=== PATIENT | male | born 1965 | race Caucasian/White ===

== ENCOUNTER → 2019-10-15 | Outpatient (CLI) | payer BC ==
[~2019-10-15] MED LIST: ALDACTONE50 MG PO; FLEXERIL PO; FUROSEMIDE 20 M20 M1 PO; HYTRIN10 MG PO; IBUPROFEN 600600 M1 PO; LISINOPRIL2.5 MG; NORCO 5-325 TA1 EACH PO; TOPROL XL200 MG PO; ZESTRIL40 MG PO; [UNRECOGNIZED DRUG - OTHER]
--- NOTE | 2019-10-16 20:00 | SLE ---
[facility] [place] [address] POLYSOMNOGRAPHY STUDY Name: YANET MONK Room #: REG [facility]#: [id number] Admission: 10/15/19 Attend Phys: Robert Dunn MD Discharge: Date of : 65 Report #: [id number] THIS REPORT FOR: //name// CC: Robert Petersen MD DATE OF SERVICE: 10/15/2019 SLEEP STUDY REFERRING PHYSICIAN: Dr. Christie Petersen. The patient is 54 years old who weighs 285 pounds with a BMI of 42.1. The patient's [place] score was 5. The patient has history of sleep apnea, has been on CPAP. The patient's CPAP machine was not functioning well. He was referred for another CPAP titration study. During the night study, the patient spent 436 minutes in bed and slept for 343 minutes with a sleep efficiency of 78%. Sleep latency was 7.4 minutes with a REM latency of 107 minutes. Sleep architecture showed normal stage 1 sleep, increased stage 2 sleep, normal slow wave and normal REM sleep. EKG monitoring revealed an average heart rate of 70 beats per minute. No sustained arrhythmias observed. Frequent PVC'S seen. No clinically significant PLM seen. The patient was started on CPAP at a pressure of 7 cm of water and titrated up to 15 cm of water. At the final pressure, the patient slept for 192 minutes including 46 minutes of REM sleep, partly supine REM. The patient's AHI was reduced to 0.6 per hour and oxygen saturation remained above 89%. IMPRESSION: 1. Sleep apnea diagnosed previously. 2. No clinically significant periodic limb movements. RECOMMENDATIONS: 1. CPAP at 15 cm of water completely eliminated the patient's sleep apnea and should be used on a nightly basis. 2. Follow up in 4-6 weeks to assess compliance with CPAP and to document clinical improvement. 3. Weight loss is strongly advised. 4. Avoid [employer] depressants. [facility] [address] [place] [address] POLYSOMNOGRAPHY STUDY Name: YANET MONK Room #: REG [facility]#: [id number] Admission: 10/15/19 Attend Phys: Robert Dunn MD Discharge: Date of : 65 Report #: [id number] 5. Cautioned regarding driving until symptoms of sleep apnea resolve with the use of CPAP. <ELECTRONICALLY SIGNED> By: Robert Dunn MD 10/16/191999 21 99 Robert Dunn MD /nt
== END ==
LOC: SLEEPLAB 10:24
DX: G47.8 Other sleep disorders (principal)